=== PATIENT | female | born 1975 | race Caucasian/White ===

== ENCOUNTER → 2016-09-20 | Outpatient (CLI) | payer OTHER ==
[~2016-09-20] MED LIST: GADOBUTROL 10 ML VIAL IVP ONE
--- NOTE | 2016-09-20 09:55 | MR ---
MRI of the Brain (Without and with Contrast) History: Left facial weakness, R 29.810. Technique: T1-weighted images were acquired axially and sagittally from the foramen magnum to the ve rtex. Axial fast inversion recovery, fast T2-weighted, GRE and diffusion-weighted axial images were obtained without contrast. 6 mL of Gadavist gadolinium was injected intravenously without complicatio n. Postcontrast sagittal, axial and coronal T1 images are obtained. The patient was given oral Valium for claustrophobia. Findings: No abnormality is identified in the lower drake, pontomedullary junction or either cerebella r pontine angle. No abnormal enhancement identified in either internal auditory canal. No obvious asy mmetric enhancement of the left 7th nerve. No obvious mass in the left parotid gland. There is no abn ormal enhancement in the brain parenchyma or involving the meninges. There is no evidence for parench ymal or subarachnoid hemorrhage. The left mastoid sinus and middle ear are normally aerated. The inte rnal capsule and brainstem are normal. Identified only on the FLAIR sequence are a limited number of right posterior frontal and bilateral a nterior parietal small T2 weighted, white matter, isovolumic foci of hyperintensity. None of these ar e bright on the diffusion study, enhance with contrast or are associated with hemorrhage. None are pe riventricular or associated with the centrum semiovale. These are nonspecific and may be related to p rior head trauma or migraine headaches. The ventricles, cisterns, and sulci are normal without atrophy, hydrocephalus, midline shift, herni ation, or epidural/subdural hematomas. No intracranial hemorrhage or masses. Diffusion-weighted seque nce demonstrates no acute infarct. Cerebellar tonsils are in normal position. Pituitary gland is norm al in size. Normal enhancement of the superior sagittal sinus, basilar artery, and bilateral internal carotid arteries indicating patency. Paranasal sinuses and mastoid air cells are clear. Impression: 1. No source for left facial weakness identified. Please see above.
== END ==
LOC: FIMAGING 07:53
PROVIDERS: ATTEND Psychiatry & Neurology Neurology
DX: R29.810 Facial weakness (principal)
CPT/HCPCS: A9585

== ENCOUNTER → 2016-09-21 | Outpatient (CLI) | payer OTHER ==
--- NOTE | 2016-09-21 11:36 | MA ---
Screening Digital Mammogram With Tomosynthesis Clinical Indications: Routine screening. Technique: Standard digital cephalocaudal and tomosynthesis mediolateral oblique projections were ob tained. The digital images were processed by the [employer] computer aided detection system. Comparison: None. Breast density: D; The breast tissue is extremely dense. This may lower the sensitivity of mammograph y. Findings: CAD was reviewed. No suspicious findings are identified. Impression: Negative mammogram. BI-RADS 1. Recommendation: Routine screening is recommended in one year, as long as physical examination is andreea ign in this patient with moderately dense breast parenchyma. Considering the patient's extremely dens e breast parenchyma, she might consider using screening breast ultrasound as a complement to annual m ammography. [facility] will send a result letter to the patient. Negative mammography should not preclude additional workup of a clinically suspicious finding. The patient's information is entered into a reminder system with a target due date for her next mammo gram.
== END ==
LOC: FIMAGING 09:43
DX: Z12.31 Encounter for screening mammogram for malignant neoplasm of breast (principal)
CPT/HCPCS: G0202

== ENCOUNTER → 2017-10-09 | Outpatient (CLI) | payer OTHER | LOC: BMCIMAGING 16:30 | PROVIDERS: ATTEND Family Medicine | DX: J40 Bronchitis, not specified as acute or chronic (principal) ==

== ENCOUNTER → 2018-06-06 | Outpatient (CLI) | payer OTHER | LOC: FIMAGING 11:24 | PROVIDERS: ATTEND Physician Assistant | DX: M79.671 Pain in right foot (principal) ==